=== PATIENT | female | born 1965 | race Two or more races ===

== ENCOUNTER 2019-09-20 09:00 | Outpatient (CLI) | payer MEDICAID | END 2019-09-20 10:00 | disposition home or self-care (01) | LOC: D.MAMMO 09:00 | PROVIDERS: ATTEND Family Medicine | DX: C50.011 Malignant neoplasm of nipple and areola, right female breast (principal) ==

== ENCOUNTER → 2019-10-30 09:25 | Outpatient (CLI) | payer MEDICAID | END | disposition home or self-care (01) | LOC: D.LABREF 09:25 | PROVIDERS: ATTEND Internal Medicine Pulmonary Disease | DX: Z11.59 Encounter for screening for other viral diseases (principal) ==

== ENCOUNTER → 2019-11-01 12:16 | Outpatient (CLI) | payer MEDICAID ==
[2019-11-02 12:09] LABS: ANA REFLEX - DIRECT Negative (Negative)
[2019-11-04 11:09] LABS: ANGIOTENSIN CONVERTING ENZYME 73 U/L (14-82)
== END | disposition home or self-care (01) ==
LOC: D.LAB 12:16 → D.RT 13:00
PROVIDERS: ATTEND Internal Medicine Pulmonary Disease
DX: J98.4 Other disorders of lung (principal)

== ENCOUNTER 2019-11-14 19:29 | Emergency (ER) | payer MEDICAID ==
[~2019-11-14] VITALS: Ht 170.2 cm; Wt 113.6 kg
[2019-11-14 20:00] VITALS: Ht 170.2 cm; Wt 113.6 kg
[2019-11-14] MEDS ORDERED: NOVOLOG100 UNIT/1 SC (20:01)
[2019-11-14] MEDS ORDERED: VICTOZA0.6 MG/0.1 SQ (20:02)
[2019-11-14] MEDS ORDERED: LEVEMIR FL100 UNIT/1 SC (20:02)
[2019-11-14] MEDS ORDERED: BP MED (20:03)
[2019-11-14] MEDS ORDERED: GLIPIZIDE10 MG PO (20:03)
[2019-11-14] MEDS ORDERED: PROVENTIL/2.5 MG/3 M INH ×2 (20:04)
[2019-11-14] MEDS ORDERED: PROAIR HFA8.5 G1 INH (20:04)
[2019-11-14 20:31] LABS: BASOPHILS 0.3 % (0-2); EOSINOPHILS 3.2 % (0-7); HEMATOCRIT 35.7 % (36.0-48.0); HEMOGLOBIN 11.2 g/dL (12-16); IMMATURE GRANULOCYTES 0.4 % (0-5); LYMPHOCYTES 27.6 % (15-50); MCH 27.5 pg (26.0-34.0); MCHC 31.4 g/dL (31.0-37.0); MCV 87.5 fL (80.0-100.0); MEAN PLATELET VOLUME 9.2 fL (7.4-10.4); MONOCYTES 8.5 % (2-11); PLATELET COUNT 288 10x3/uL (130-400); RBC 4.08 10x6/uL (4.00-5.40); RDW 13.7 % (11.5-14.5); WBC 10.5 10x3/uL (4.8-10.8)
[2019-11-14 20:43] LABS: CALCIUM 8.8 mg/dL (8.5-10.1); CARBON DIOXIDE 24.6 mmol/L (21.0-32.0); CREATININE - SERUM 1.7 mg/dL (0.6-1.3); POTASSIUM - SERUM 4.6 mmol/L (3.5-5.1)
[2019-11-14 20:50] LABS: ALBUMIN 2.9 g/dL (3.4-5.0); BILIRUBIN - TOTAL 0.22 mg/dL (0.2-1.3); PROTEIN - SERUM 7.1 g/dL (6.4-8.2)
[2019-11-14 21:24] LABS: BILIRUBIN NEGATIVE (NEGATIVE); GLUCOSE 50 mg/dL (NEGATIVE); KETONE NEGATIVE (NEGATIVE); NITRITE NEGATIVE (NEGATIVE); SPECIFIC GRAVITY 1.015 (1.005-1.020); UROBILINOGEN NORMAL (NORMAL)
[2019-11-14 21:26] LABS: BACTERIA MANY /hpf (NEGATIVE); EPITHELIAL CELLS 0-5 /hpf (0-5); RED CELLS - URINE 0-5 /hpf (0-5); WHITE CELLS - URINE 25-50 /hpf (NEGATIVE)
[2019-11-14] MEDS ORDERED: CIPRO500 MG PO (21:30)
[2019-11-14] MEDS ORDERED: IBUPROFEN800 MG PO (21:30)
[2019-11-14 21:55] VITALS: BP 160/87
== END 2019-11-14 21:56 | disposition home or self-care (01) ==
LOC: D.ER 19:29
PROVIDERS: Emergency Medicine
DX: N39.0 Urinary tract infection, site not specified (principal); R51 Headache; R05 Cough; R68.89 Other general symptoms and signs; E11.9 Type 2 diabetes mellitus without complications; I10 Essential (primary) hypertension; J45.909 Unspecified asthma, uncomplicated; Z79.84 Long term (current) use of oral hypoglycemic drugs

== ENCOUNTER 2019-11-20 17:27 | Emergency (ER) | payer MEDICAID ==
[~2019-11-20] VITALS: Ht 170.2 cm; Wt 113.6 kg
[~2019-11-20 17:27] MED LIST: BP MED; CIPRO500 MG PO; GLIPIZIDE10 MG PO; IBUPROFEN800 MG PO; LEVEMIR FL100 UNIT/1 SC; NOVOLOG100 UNIT/1 SC; PROAIR HFA8.5 G1 INH; PROVENTIL/2.5 MG/3 M INH; VICTOZA0.6 MG/0.1 SQ
[2019-11-20 17:39] VITALS: Ht 170.2 cm; Wt 113.6 kg
[2019-11-20] MEDS ORDERED: FUROSEMIDE20 MG PO (17:46)
[2019-11-20] MEDS ORDERED: LOSARTAN-HCTZ1 EAC1 PO (17:48)
[2019-11-20] MEDS ORDERED: COZAAR25 MG PO (17:49)
[2019-11-20] MEDS ORDERED: OMEPRAZOLE40 MG PO (17:50)
[2019-11-20] MEDS ORDERED: LOSARTAN (17:50)
[2019-11-20] MEDS ORDERED: ZYLOPRIM100 MG PO (17:50)
[2019-11-20] MEDS ORDERED: LIPITOR20 MG PO (17:50)
[2019-11-20 18:24] LABS: BASOPHILS 0.1 % (0-2); EOSINOPHILS 3.8 % (0-7); HEMOGLOBIN 11.4 g/dL (12-16); IMMATURE GRANULOCYTES 0.3 % (0-5); LYMPHOCYTES 20.5 % (15-50); MCHC 32.6 g/dL (31.0-37.0); MEAN PLATELET VOLUME 9.3 fL (7.4-10.4); MONOCYTES 7.8 % (2-11); NEUTROPHILS 67.5 % (40-80); PLATELET COUNT 236 10x3/uL (130-400); RBC 4.07 10x6/uL (4.00-5.40); RDW 13.4 % (11.5-14.5); WBC 8.8 10x3/uL (4.8-10.8)
[2019-11-20 18:33] LABS: CALC OSMOLALITY 281 mosm/kg (275-300); CARBON DIOXIDE 23.7 mmol/L (21.0-32.0); CHLORIDE - SERUM 99 mmol/L (98-107); CREATININE - SERUM 1.8 mg/dL (0.6-1.3); POTASSIUM - SERUM 4.4 mmol/L (3.5-5.1); SODIUM 129 mmol/L (136-145); UREA NITROGEN 33 mg/dL (7-18); eGFR NON AFRICAN AMERICAN 31 mL/min (90-120)
[2019-11-20 18:35] LABS: APTT 27.5 SECONDS (22.8-39.4); INR 0.97 (0.85-1.17); PROTIME 12.8 SECONDS (11.6-15.0)
[2019-11-20 18:36] LABS: GLUCOSE 384 mg/dL (74-106)
[2019-11-20 18:51] LABS: ALBUMIN 3.1 g/dL (3.4-5.0); ALKALINE PHOSPHATASE 136 U/L (30-120); ALT (SGPT) 30 U/L (10-68); BILIRUBIN - TOTAL 0.21 mg/dL (0.2-1.3); CKMB 1.3 U/L (0.0-3.6); CREATINE KINASE 78 UL (21-215); MAGNESIUM - SERUM 1.7 mg/dL (1.8-2.4); PROTEIN - SERUM 7.1 g/dL (6.4-8.2)
[2019-11-20 19:00] LABS: TROPONIN-I < 0.017 ng/mL (0.000-0.060)
[2019-11-20] MEDS ORDERED: OMNICEF300 MG PO (22:21)
[2019-11-20] MEDS ORDERED: ZPAK PO (22:21)
[2019-11-20 22:40] VITALS: BP 152/89
== END 2019-11-20 22:40 | disposition home or self-care (01) ==
LOC: D.ER 17:27
PROVIDERS: Family Medicine
DX: E11.65 Type 2 diabetes mellitus with hyperglycemia (principal); J18.9 Pneumonia, unspecified organism; I10 Essential (primary) hypertension; Z79.4 Long term (current) use of insulin; J45.909 Unspecified asthma, uncomplicated; E78.5 Hyperlipidemia, unspecified; R07.89 Other chest pain